=== PATIENT | male | born 1950 | race Caucasian/White ===

== ENCOUNTER 2019-10-14 07:34 | Outpatient (CLI) | payer MEDICARE, SELFPAY ==
--- NOTE | ~2019-10-14 | CT_ITS ---
EXAMINATION: CT chest wo con EXAM DATE: 10/14/2019 08:07 INDICATION: Ascending aortic aneurysm. Skin cancer. TECHNIQUE: Spiral CT of the chest without contrast. Axial, coronal and sagittal images were reviewe d. Coronal maximum intensity pixel images of chest reviewed. The dose-length product (DLP) for this examination was 638.49 mGy-cm. The exposure was tailored according to patient size (auto mA exposur e control), and iterative reconstruction (ASIR) was used as additional dose reduction technique. Comp arison is made to prior examination from 06/13/2017. FINDINGS: The main, central pulmonary arteries are dilated which can indicate elevated pulmonary j luis rial pressure, pulmonary arterial hypertension. The ascending aorta measures 4.6 cm, mildly aneurysma l, not appreciably changed. The lungs are clear. There are no pleural or pericardial effusions. T racheobronchial tree is patent. There is no mediastinal, hilar or axillary lymphadenopathy. There is no pneumothorax. Heart normal in size. There are sternotomy wires, and cardiac/coronary surgi summer changes. Correlate with prior history. Upper abdomen is unremarkable. There is thoracic spondy losis without osteoblastic or osteolytic lesions identified. Patient has diffuse idiopathic skeletal hyperostosis (DISH). Resolution of previously seen acute airspace disease and small pleural and pericardial effusions. IMPRESSION: 1. Stable ascending aortic aneurysm up to 4.6 cm. 2. Pulmonary arterial hypertension. Reviewed, dictated and finalized at location A.
== END 2019-10-14 07:35 | disposition home or self-care (01) ==
PROVIDERS: PCP Family Medicine; Visit Provider Internal Medicine Cardiovascular Disease
DX: I71.2 Thoracic aortic aneurysm, without rupture (principal); I27.21 Secondary pulmonary arterial hypertension
CPT/HCPCS: 71250

== ENCOUNTER → 2020-09-13 01:16 | Outpatient (CLI) | payer MEDICARE, SELFPAY ==
[2020-09-14 14:09] LABS: SARS-CoV-2 RNA PCR Negative
== END ==
PROVIDERS: PCP Family Medicine; Visit Provider Specialist
DX: Z01.812 Encounter for preprocedural laboratory examination (principal); Z20.822 Contact with and (suspected) exposure to COVID-19
CPT/HCPCS: C9803; U0003; U0005

== ENCOUNTER 2020-09-16 01:28 | Day surgery (SDC) | payer MEDICARE, SELFPAY ==
[2020-09-15 15:06] VITALS: BMI 36.0
[2020-09-16] VITALS (10 sets, daily range): BP systolic 102–126; BP diastolic 71–86; PULSE 81–89; RESP 13–20; TEMP 36.1–36.4; O2SAT 97–100; BMI 36.6
[2020-09-16 08:21] LABS: Basophils Absolute Auto 0.1 K/mm3 (0.0-0.1); Eosinophils Absolute Auto 0.2 K/mm3 (0-0.3); Hematocrit 46.4 % (42.0-52.0); Hemoglobin 15.7 g/dL (14.0-18.0); Immature Granulocyte Absolute 0.01 K/mm3 (0.00-0.031); Immature Granulocyte Percent A 0.2 % (0-0.5); Lymphocytes Absolute Auto 1.91 K/mm3 (0.9-3.2); Lymphocytes Percent Auto 30.4 % (18.3-44.2); Mean Corpuscular HGB Conc 33.8 g/dl (32-36); Mean Corpuscular Hemoglobin 29.6 pg (26-34); Mean Corpuscular Volume 87.4 fl (80-100); Mean Platelet Volume 10.5 fl (7.4-10.4); Monocytes Absolute Auto 0.6 K/mm3 (0.1-0.6); Monocytes Percent Auto 9.4 % (2.6-8.5); Neutrophils Absolute Auto 3.5 K/mm3 (1.3-6.7); Platelet Count Result 141 k/mm3 (150-375); Red Blood Count 5.31 M/mm3 (4.6-6.20); Red Cell Distribution Width 12.8 % (11.5-14.5); White Blood Count 6.3 K/mm3 (4.5-10.0)
[2020-09-16 08:32] LABS: Anion Gap 8 mmol/L (8-16); Blood Urea Nitrogen 17 mg/dL (9-20); Calcium 9.3 mg/dL (8.4-10.2); Carbon Dioxide 27 mmol/L (22-30); Chloride 105 mmol/L (98-107); Estimated CRCL calculation 83 ml/min; Estimated Glomerular Filt Rate > 60; Glucose 97 mg/dL (75-110); Potassium 4.8 mmol/L (3.4-5.0); Sodium 140 mmol/L (137-145)
--- NOTE | 2020-09-16 09:21 | ECG_ITS ---
Measurements Intervals [place] Rate: 81 P: MO: 0 QRS: 209 QRSD: 185 T: 25 QT: 428 QTc: 499 Interpretive Statements ATRIAL FIBRILLATION VENTRICULAR PREMATURE COMPLEX RIGHT AXIS DEVIATION RIGHT BUNDLE BRANCH BLOCK INFERIOR INFARCT, AGE INDETERMINATE ABNORMAL ECG Electronically Signed On 09-16-2020 9:41:28 CDT by Jaret Fischer D.O.
--- NOTE | 2020-09-16 09:38 | WPDMODSED ---
Moderate Sedation Note-Pt Data Patient Data Diagnosis: Coronary artery disease with previous bypass grafting, un bypassed circumflex disease, paroxysmal atrial fibrillation with recent recurrence, abnormal nuclear stress test suggesting previous inferior infarction with simone-infarction ischemia Present Complaint: shortness of breath with modest activity Procedure to be performed/Plan: left heart catheterization with [place] coronary angiography, vein graft angiography and internal mammary graft angiography Allergies Allergy/AdvReac Type Severity Reaction Status Date / Time adhesive Allergy Unknown RASH Verified 09/15/20 15:04 Home Medications Medication Instructions Recorded Confirmed Type aspirin 81 mg tablet,delayed 81 mg PO DAILY 06/03/19 09/16/20 History release atorvastatin 40 mg tablet 40 mg PO DAILY 06/03/19 09/16/20 History furosemide 20 mg tablet 20 mg PO QAM tablet 06/03/19 09/16/20 History levocetirizine 5 mg tablet 5 mg PO DAILY 06/03/19 09/16/20 History metoprolol tartrate 25 mg tablet 25 mg PO BID tablet 06/03/19 09/16/20 History multivitamin 1 tablet PO DAILY 06/03/19 09/16/20 History rivaroxaban 20 mg tablet 20 mg PO QPM 06/03/19 09/16/20 History cholecalciferol (vitamin D3) 50 50 mcg PO DAILY 06/20/20 09/16/20 History mcg (2,000 unit) capsule zinc 50 mg tablet 50 mg PO DAILY 06/20/20 09/16/20 History acetaminophen [Tylenol Extra 500 mg PO Q6H PRN 09/16/20 09/16/20 History Strength] amiodarone 100 mg PO DAILY 09/16/20 09/16/20 History ascorbic acid (vitamin C) 1 g PO DAILY 09/16/20 09/16/20 History Current Medications: Active Medications Sodium Chloride (Normal Saline Iv) 500 mls @ 100 mls/hr IV CONT .Q5H ROSHNI Sedation/Anesthesia: No previous sedation/anesthesia problems (including family history). [facility] Past Medical History Medical History (Updated 06/03/19 @ 09:16 by Jose Johnson MD) Elevated PSA Surgical History Surgical History History of repair of rotator cuff bilateral S/P CABG (coronary artery bypass graft) Social History Social History (Updated 03/29/21 @ 09:33 by Izabella Chapin) Smoking status: Never smoker Second hand tobacco smoke exposure: No Alcohol intake: former Substance use: never Substance use type: does not use Gender identity (if verbalized by the patient): Male Mod Sed Physical Exam Physical Exam Pre Procedural Exam: Normal: Throat, Airway, Lungs, Heart Size, Heart Rate and Neuro Exam and Variation: Appearance ( obese white male no apparent distress), Heart Rhythm ( irregularly irregular) and Extremities ( distal pulses 1/4) Hours since solid foods: 12 Hours since liquid intake: 12 Internal Medicine - PN: Obj Da Vital Signs Vital Signs: Vital Signs - 24 hr 09/16/20 08:00 Temperature 36.1 C L Pulse Rate 84 Respiratory Rate 13 Blood Pressure 119/84 Pulse Oximetry 100 Meds/Results Medications: Active Medications Generic Name Dose Route Start Last Admin Trade Name Freq PRN Reason Stop Dose Admin Sodium Chloride 500 mls @ 100 mls/hr 09/16/20 07:30 Normal Saline Iv IV CONT .Q5H ROSHNI Labs CBC & Chem 7: 09/16/20 07:52 09/16/20 07:52 Labs: Laboratory Results - last 24 hr 09/16/20 09/16/20 07:52 07:52 WBC 6.3 RBC 5.31 Hgb 15.7 Hct 46.4 MCV 87.4 MCH 29.6 MCHC 33.8 RDW 12.8 Plt Count 141 L MPV 10.5 H Immature Gran % (Auto) 0.2 Neut % (Auto) 56.0 Lymph % (Auto) 30.4 Lee % (Auto) 9.4 H Eos % (Auto) 3.0 Baso % (Auto) 1.0 Lymph # (Auto) 1.91 Lee # (Auto) 0.6 Eos # (Auto) 0.2 Baso # (Auto) 0.1 Abs Immat Gran (auto) 0.01 Absolute Neuts (auto) 3.5 Absolute Nucleated RBC 0.0 Nucleated RBC % 0.0 Sodium 140 Potassium 4.8 Chloride 105 Carbon Dioxide 27 Anion Gap 8 BUN 17 Creatinine 1.00 Estim Creat Clear Calc 83 Estimated GFR > 60 Glucose 97
--- NOTE | 2020-09-16 09:41 | PM.IMHP ---
H&P: HPI History of Present Illness Date/Time: 09/16/20 09:41 Chief Complaint: shortness of breath with modest activity Narrative: this is a 69-year-old man with a history of coronary artery disease and atrial fibrillation. He was found to have diffuse severe coronary artery disease by angiography in September of 2018 at which time he was referred for revascularization at [facility]. He also has a history of intermittent atrial fibrillation and right bundle branch block. Recently he has noticed much higher heart rate with physical activity he states that he attends cardiac rehab and was told that he is back in atrial fibrillation. He had a nuclear stress test in the office which demonstrated a fixed inferior defect with some simone-infarct ischemia. In this setting angiography has been recommended. The patient in 2019 was found to have heavy calcification in the coronary arteries with flow-limiting disease in the mid LAD, significant disease in a very small ramus intermedius and significant ostial stenosis of the circumflex, right coronary also had complex sequential lesions proximally and in the midportion. Bypass grafting was recommended and performed at [facility]. According to the charts he received an internal mammary graft to the LAD and a vein graft to the right coronary. The circumflex disease appears to be un bypassed and I do not have receipt of the operative note to explain that. There were no significant marginal branches other than the ramus intermedius branch which I mentioned above appeared to be very small angiographically and Possibly not suitable for revascularization. in this setting a follow-up angiogram has been recommended. Review of Systems Constitutional: Constitutional: Reports no additional constitutional complaints Eyes: Eyes: Reports no additional eye complaints ENT: Reports system reviewed and no additional complaints, except as documented Cardiovascular: Cardiovascular: Reports palpitations Respiratory: Respiratory: Reports dyspnea on exertion Gastrointestinal: Gastrointestinal: Reports no additional gastrointestinal complaints Musculoskeletal: Musculoskeletal: Reports no additional musculoskeletal complaints Integumentary/Breasts: Skin/Breast: Reports system reviewed and no additional complaints, except as docu Neurologic: Reports system reviewed and no additional complaints, except as documented [facility] Past Medical History Medical History (Updated 06/03/19 @ 09:16 by Jose Johnson MD) Elevated PSA Surgical History Surgical History History of repair of rotator cuff bilateral S/P CABG (coronary artery bypass graft) Social History Social History (Updated 06/20/20 @ 09:33 by Izabella Chapin) Smoking status: Never smoker Second hand tobacco smoke exposure: No Alcohol intake: former Substance use: never Substance use type: does not use Gender identity (if verbalized by the patient): Male Meds Home Medications and Allergies Home Medications Medication Instructions Recorded Confirmed Type aspirin 81 mg tablet,delayed 81 mg PO DAILY 06/03/19 09/16/20 History release atorvastatin 40 mg tablet 40 mg PO DAILY 06/03/19 09/16/20 History furosemide 20 mg tablet 20 mg PO QAM tablet 06/03/19 09/16/20 History levocetirizine 5 mg tablet 5 mg PO DAILY 06/03/19 09/16/20 History metoprolol tartrate 25 mg tablet 25 mg PO BID tablet 06/03/19 09/16/20 History multivitamin 1 tablet PO DAILY 06/03/19 09/16/20 History rivaroxaban 20 mg tablet 20 mg PO QPM 06/03/19 09/16/20 History cholecalciferol (vitamin D3) 50 50 mcg PO DAILY 06/20/20 09/16/20 History mcg (2,000 unit) capsule zinc 50 mg tablet 50 mg PO DAILY 06/20/20 09/16/20 History acetaminophen [Tylenol Extra 500 mg PO Q6H PRN 09/16/20 09/16/20 History Strength] amiodarone 100 mg PO DAILY 09/16/20 09/16/20 History ascorbic acid (vitamin C) 1 g PO DAILY
--- NOTE | 2020-09-16 10:22 | WPDCARDPROC ---
Cardiac Cath Procedure Note Date of procedure:: 09/16/20 Performing physician:: Jim Rico MD Indication:: Exertional dyspnea coronary artery disease with bypass grafting to the LAD and right coronary in 2019. atrial fibrillation with recent symptomatic recurrence nuclear stress test suggesting previous inferior infarction and simone-infarct ischemia Brief clinical history:: this is a 69-year-old man who is known to have severe 3 vessel coronary disease. He also has a history of paroxysmal atrial fibrillation. He has recently been experiencing exertional shortness of breath which is clinically felt to be related to recurrence of atrial fib. He is not reporting anginal-type chest pain. A nuclear stress test was done in the office which demonstrated a fixed inferior defect with partial reversibility compatible with infarction with simone-infarct ischemia. A follow-up angiogram has been recommended. Previous angiography did did demonstrate a high-grade disease in the mid LAD as well as the proximal and mid RCA. High-grade ostial circumflex disease was also identified and according to the record the circumflex was not grafted. There was also [id number] left main coronary disease. Procedure Procedure performed:: Left ventriculography coronary angiography vein graft angiography internal mammary graft angiography femoral artery angiography and Angio-Seal to right femoral artery Sedation/Medication given:: fentanyl 50 mg Versed 2 mg case start time 9:50 a.m. case end time 10:21 a.m. sedation provided by Socorro Newell RN, trained observer Access site:: right femoral artery Estimated blood loss:: 20 cc Procedure note:: patient was brought to the cardiac catheterization lab in the postabsorptive state where the right femoral triangle was prepared and draped in the usual fashion. Lidocaine 1% was infiltrated for local anesthesia. Following this the femoral artery was punctured and a 5 Macedonian vascular sheath was placed. I then used a 5 Macedonian angled pigtail catheter to measure central hemodynamics and to injected LV g in the TORRES projection. After this a 5 Macedonian FL4 catheter was used to engage and inject the left coronary artery. Following this a 5 Macedonian JR4 catheter was used to engage inject the right coronary artery as well as the RCA vein graft. The left internal mammary graft was injected using a 5 Macedonian IM catheter. Cineangiograms were then reviewed and the case was terminated angiogram was done of the femoral artery through the sheath after which Angio-Seal device was deployed with a good hemostatic result. Procedure was uncomplicated and well tolerated. He was taken to the holding area with no evidence of a groin hematoma. Findings:: Hemodynamics: Central aortic pressure is 112 over 58 left ventricle 112/0 end-diastolic 14 there is no systolic gradient on pullback across the aortic valve. Left ventricle: The LV is normal in size the mid inferior wall is akinetic to slightly dyskinetic. The remainder of the LV contracts adequately. The global ejection fraction of visually estimated to be 50%. The left main coronary artery is large in caliber there is an eccentric proximal/ostial plaque of about 70-80%. There is mild distal left main disease. The left anterior descending is a diffusely diseased vessel with diffuse mild atherosclerosis in the proximal 3rd. The major diagonal branch takes its origin from the segment and has diffuse 60-70% stenosis. After this the midportion of the LAD is functionally 100% occluded with competitive filling seen from the ANANYA graft. The circumflex is a medium caliber vessel which has a 90% stenosis at the ostium. The 1st OM branch takes off is a ramus intermedius is a small diffusely diseased artery angiographically unchanged from 2019. There is a very small 2nd OM branch which is not significantly disease. There is a larger 3rd OM branch which has very sluggish Flow d
--- NOTE | 2020-09-16 14:03 | PC.NURSE ---
IV d/c'd from left forearm, catheter intact. Discharge instructions reviewed with patient and spouse with stated understanding. Instructed to resume Xarelto on SaturdaySeptember [address] Rico's instructions. Pt discharged via wheelchair to personal vehicle with spouse driving.
== END 2020-09-16 13:30 | disposition home or self-care (01) ==
PROVIDERS: PCP Family Medicine; Visit Provider Specialist
PROC: 4A023N7 Measurement of Cardiac Sampling and Pressure, Left Heart, Percutaneous Approach (ICD-10-PCS; CPT 93459; principal; 2020-09-16 09:00)
DX: I25.10 Atherosclerotic heart disease of native coronary artery without angina pectoris (principal); R94.39 Abnormal result of other cardiovascular function study; R06.09 Other forms of dyspnea; I48.0 Paroxysmal atrial fibrillation; Z95.1 Presence of aortocoronary bypass graft; Z79.82 Long term (current) use of aspirin; Z79.01 Long term (current) use of anticoagulants
CPT/HCPCS: 36415; 80048; 85025; 93005; 93459; C1760; C1887; C1894; C9803; G0269; J1644; J2250; J3010; J7040; U0003; U0005

== ENCOUNTER 2020-10-14 01:30 | Day surgery (SDC) | payer MEDICARE, SELFPAY ==
[2020-10-13 15:25] VITALS: BMI 36.2
[2020-10-14] VITALS (10 sets, daily range): BP systolic 110–138; BP diastolic 75–119; PULSE 58–80; RESP 12–18; TEMP 36.1; O2SAT 14–99
--- NOTE | 2020-10-14 | ECG_ITS ---
Measurements Intervals [place] Rate: 60 P: -25 PA: 203 QRS: 196 QRSD: 186 T: -5 QT: 478 QTc: 481 Interpretive Statements SINUS RHYTHM ATRIAL PREMATURE COMPLEX BORDERLINE AV CONDUCTION DELAY RIGHT BUNDLE BRANCH BLOCK CONSIDER INFERIOR INFARCT, AGE INDETERMINATE ABNORMAL ECG Electronically Signed On 10-14-2020 13:08:37 CDT by Jaret Fischer D.O.
--- NOTE | 2020-10-14 08:30 | ECG_ITS ---
Measurements Intervals [place] Rate: 88 P: MO: 0 QRS: 223 QRSD: 181 T: 22 QT: 408 QTc: 495 Interpretive Statements ATRIAL FIBRILLATION RIGHT BUNDLE BRANCH BLOCK CONSIDER INFERIOR INFARCT, AGE INDETERMINATE BASELINE ARTIFACT- I, II, III, AVL, AVF ABNORMAL ECG Electronically Signed On 10-14-2020 13:10:35 CDT by Jaret Fischer D.O.
[2020-10-14 09:48] LABS: Anion Gap 7 mmol/L (8-16); Blood Urea Nitrogen 20 mg/dL (9-20); Calcium 9.4 mg/dL (8.4-10.2); Carbon Dioxide 27 mmol/L (22-30); Chloride 106 mmol/L (98-107); Estimated CRCL calculation 111 ml/min; Estimated Glomerular Filt Rate > 60; Glucose 102 mg/dL (65-110); Potassium 4.6 mmol/L (3.4-5.0); Sodium 140 mmol/L (137-145)
[2020-10-14 09:58] LABS: Magnesium 2.2 mg/dL (1.6-2.3)
--- NOTE | 2020-10-14 12:25 | WPDMODSED ---
Moderate Sedation Note-Pt Data Patient Data Diagnosis: coronary artery disease with previous surgical revascularization recurrent symptomatic atrial fibrillation Present Complaint: exertional dyspnea and fatigue Procedure to be performed/Plan: DC cardioversion Allergies Allergy/AdvReac Type Severity Reaction Status Date / Time adhesive Allergy Unknown RASH Verified 10/13/20 15:29 Home Medications Medication Instructions Recorded Confirmed Type aspirin 81 mg tablet,delayed 81 mg PO DAILY 06/03/19 10/14/20 History release atorvastatin 40 mg tablet 40 mg PO DAILY 06/03/19 10/13/20 History furosemide 20 mg tablet 20 mg PO QAM tablet 06/03/19 10/13/20 History levocetirizine 5 mg tablet 5 mg PO DAILY 06/03/19 10/13/20 History metoprolol tartrate 25 mg tablet 50 mg PO BID tablet 06/03/19 10/14/20 History multivitamin 1 tablet PO DAILY 06/03/19 10/13/20 History rivaroxaban 20 mg tablet 20 mg PO QPM 06/03/19 10/14/20 History cholecalciferol (vitamin D3) 50 50 mcg PO DAILY 06/20/20 10/13/20 History mcg (2,000 unit) capsule zinc 50 mg tablet 50 mg PO DAILY 06/20/20 10/13/20 History acetaminophen [Tylenol Extra 500 mg PO Q6H PRN 09/16/20 10/13/20 History Strength] ascorbic acid (vitamin C) 1 g PO DAILY 09/16/20 10/13/20 History Current Medications: Active Medications Sodium Chloride (Normal Saline Iv) 500 mls @ 30 mls/hr IV CONT .[id number] ROSHNI Sedation/Anesthesia: No previous sedation/anesthesia problems (including family history). [facility] Past Medical History Medical History (Updated 06/03/19 @ 09:16 by Jose Johnson MD) Elevated PSA Surgical History Surgical History History of repair of rotator cuff bilateral S/P CABG (coronary artery bypass graft) Social History Social History (Updated 06/20/20 @ 09:33 by Izabella Chapin) Smoking status: Never smoker Second hand tobacco smoke exposure: No Alcohol intake: former Substance use: never Substance use type: does not use Living arrangements: with family Gender identity (if verbalized by the patient): Male Sexual Orientation (if Verbalized by the Patient): Straight or Heterosexual Spiritual care concerns: No Mod Sed Physical Exam Physical Exam Pre Procedural Exam: Normal: Throat, Airway, Lungs, Heart Size, Neuro Exam and Extremities and Variation: Appearance ( obese white male no distress), Neck ( cannot assess JVD because of obesity), Heart Rate and Heart Rhythm ( irregularly irregular) Hours since solid foods: 12 Hours since liquid intake: 12 Mallampati Classification: class III Internal Medicine - PN: Obj Da Vital Signs Vital Signs: Vital Signs - 24 hr 10/14/20 09:34 Temperature 36.1 C L Pulse Rate 80 Respiratory Rate 15 Blood Pressure 130/89 Pulse Oximetry 97 Meds/Results Medications: Active Medications Generic Name Dose Route Start Last Admin Trade Name Freq PRN Reason Stop Dose Admin Sodium Chloride 500 mls @ 30 mls/hr 10/14/20 08:30 Normal Saline Iv IV CONT .[id number] ROSHNI Labs CBC & Chem 7: 10/14/20 09:11 Labs: Laboratory Results - last 24 hr 10/14/20 09:11 Sodium 140 Potassium 4.6 Chloride 106 Carbon Dioxide 27 Anion Gap 7 L BUN 20 Creatinine 1.00 Estim Creat Clear Calc 111 Estimated GFR > 60 Glucose 102 Calcium 9.4 Magnesium 2.2 ASA Classification/Sedation ASA Classification/Sedation ASA Class: III Emergent: No Risks: Risks, benefits and alternatives explained and patient/family accepted plan for sedation. Patient re-evaluated immediately prior to sedation.
--- NOTE | 2020-10-14 12:46 | WPDCARDPROC ---
Cardiac Cath Procedure Note Date of procedure:: 10/14/20 Performing physician:: Jim Rico MD Indication:: recurrent atrial fibrillation Brief clinical history:: this is a 69-year-old man known to have coronary artery disease with previous bypass grafting. He has had atrial fibrillation as well previously. He now has a symptomatic recurrence of atrial fibrillation he has been anticoagulated as an outpatient and episcopal of sinus rhythm electrically has been recommended by my partner who sees him in the office. Procedure Procedure performed:: DC cardioversion Sedation/Medication given:: intravenous propofol in aliquots total dosage of 100 mg Estimated blood loss:: no blood loss Procedure note:: patient was in the postabsorptive state placed in the supine position with defibrillator patches in the AP position. IV access was established in the left upper extremity. He was then sedated using propofol in aliquots a total dosage of 100 mg was given which provided excellent sedation. At that time he was cardioverted in a synchronized fashion using 200 joules x1 shock which restored normal sinus rhythm. Findings:: As above Conclusion:: successful uncomplicated DC cardioversion of atrial fibrillation restoring sinus rhythm using 200 joules x1 shock. Jim Rico MD [facility]
--- NOTE | 2020-10-14 14:32 | SUR.PHASEII ---
IV d/c'd - catheter intact. Discharge instructions reviewed with patient and spouse with stated understanding. Discharged to home via wheelchair to personal vehicle with driving.
== END 2020-10-14 14:20 | disposition home or self-care (01) ==
PROVIDERS: PCP Family Medicine; Visit Provider Specialist
PROC: 5A2204Z Restoration of Cardiac Rhythm, Single (ICD-10-PCS; principal; 2020-10-14 10:00)
DX: I48.0 Paroxysmal atrial fibrillation (principal); I45.10 Unspecified right bundle-branch block; I77.89 Other specified disorders of arteries and arterioles; I28.9 Disease of pulmonary vessels, unspecified; I37.1 Nonrheumatic pulmonary valve insufficiency; R06.02 Shortness of breath; I25.9 Chronic ischemic heart disease, unspecified; Z95.1 Presence of aortocoronary bypass graft; Z79.82 Long term (current) use of aspirin; Z79.01 Long term (current) use of anticoagulants; I34.0 Nonrheumatic mitral (valve) insufficiency; G47.33 Obstructive sleep apnea (adult) (pediatric); I25.118 Atherosclerotic heart disease of native coronary artery with other forms of angina pectoris; I27.20 Pulmonary hypertension, unspecified; I71.2 Thoracic aortic aneurysm, without rupture
CPT/HCPCS: 36415; 80048; 83735; 92960; J2704; J7040

== ENCOUNTER 2020-11-29 08:05 | Outpatient (CLI) | payer MEDICARE, SELFPAY ==
--- NOTE | ~2020-11-29 | CT_ITS ---
EXAMINATION: CT diagnostic chest wo con EXAM DATE: 11/29/2020 08:30 INDICATION: TAA . Thoracic ascending aortic aneurysm. TECHNIQUE: Spiral CT of the chest without contrast. Axial, coronal and sagittal images of the chest were reviewed. Coronal maximum intensity pixel images of chest reviewed. The dose-length product ( DLP) for this examination was 649.95 mGy-cm. The exposure was tailored according to patient size (au to mA exposure control), and iterative reconstruction (ASIR) was used as additional dose reduction te chnique. Comparison is made to prior examination from 10/14/2019, 06/13/17. FINDINGS: The ascending aorta measures 4.8 cm, was 4.6 on prior examinations, minimal interval incre ase in size. The main, central pulmonary arteries are dilated which can indicate elevated pulmonary a rterial pressure, pulmonary arterial hypertension. There is mild emphysema. There is no focal acute a ir space disease. There are no pleural or pericardial effusions. Tracheobronchial tree is patent . There is no mediastinal, hilar or axillary lymphadenopathy. There is no pneumothorax. Heart n ormal in size. There are sternotomy wires, and cardiac/coronary surgical changes. Correlate with pr ior history. Upper abdomen is unremarkable. There is thoracic spondylosis without osteoblastic or osteolytic lesions identified. IMPRESSION: 1. Minimal interval increase in 4.8 cm ascending aortic aneurysm size. 2. Pulmonary arterial hypertension. 3. Mild emphysema. Reviewed, dictated and finalized at location A.
== END 2020-11-29 08:06 | disposition home or self-care (01) ==
PROVIDERS: PCP Family Medicine; Visit Provider Nurse Practitioner Adult Health
DX: I71.2 Thoracic aortic aneurysm, without rupture (principal); I27.21 Secondary pulmonary arterial hypertension; J43.9 Emphysema, unspecified
CPT/HCPCS: 71250

== ENCOUNTER 2021-12-01 09:11 | Outpatient (CLI) | payer MEDICARE, SELFPAY ==
--- NOTE | ~2021-12-01 | CT_ITS ---
EXAMINATION: CT diagnostic chest wo con DATE: 12/01/2021 11:43 INDICATION: Aortic aneurysm TECHNIQUE: Computed tomography (CT) of the chest was performed without intravenous contrast. The dose -length product (DLP) was 663.02 mGy-cm. Automated exposure control and iterative reconstruction tech Babelgum were employed. COMPARISON: 11/29/2020 FINDINGS: There is a stable fusiform aneurysm of the ascending aorta measuring 4.8 cm at the level of the main pulmonary artery. Although limited by the absence of intravenous contrast, no dissection is identified. There is mild atelectasis. No pleural effusion or pneumothorax. There is enlargement of the main and central pulmonary arteries, consistent with pulmonary hypertension. Changes of cardiac s urgery are noted. There are bridging osteophytes at multiple levels in the spine, consistent with dif fuse idiopathic skeletal hyperostosis (DISH). The esophagus is mildly patulous and contains fluid in its distal two thirds. IMPRESSION: 1. Stable fusiform aneurysm of the ascending aorta. 2. Mildly patulous and fluid-filled distal esophagus of unclear significance. 3. Findings consistent with pulmonary hypertension Reviewed, dictated and finalized at location B.
== END 2021-12-01 09:12 | disposition home or self-care (01) ==
PROVIDERS: PCP Family Medicine; Visit Provider Nurse Practitioner Adult Health
DX: I71.2 Thoracic aortic aneurysm, without rupture (principal)
CPT/HCPCS: 71250

== ENCOUNTER 2022-03-13 00:27 | Day surgery (SDC) | payer MEDICARE, SELFPAY ==
[2022-03-06 13:00] VITALS: BMI 25.7
[2022-03-13 07:23] VITALS: BP 144/76; PULSE 63; RESP 18; TEMP 36.1; O2SAT 94; BMI 36.3
[2022-03-13] MEDS: LACTATED RINGERS 1,000 ML 150 ML IV CONT (07:32)
--- NOTE | 2022-03-13 07:50 | WPDANESEPPF ---
Anes - Initial Pre Proc Eval Procedure: Operation Date: 03/13/22 08:30 Proposed Procedures p Screening Colonoscopy - Jose Dunne MD Date/Time: 03/13/22 07:50 Surgeon: Jose Dunne MD Pre Op Diagnosis: neoplasm screening Patient Data Age: 71 Gender: M Height: 1.85 m Weight: 124.8 kg Last Vital Signs Temp 36.1 C L 03/13/22 07:23 Pulse 63 03/13/22 07:23 Resp 18 03/13/22 07:23 BP 144/76 H 03/13/22 07:23 Pulse Ox 94 03/13/22 07:23 O2 Del Method Room Air 03/13/22 07:23 Allergies Allergy/AdvReac Type Severity Reaction Status Date / Time adhesive Allergy Mild RASH Verified 03/13/22 07:21 Home Medications Medication Instructions Recorded Confirmed Type aspirin 81 mg tablet,delayed 81 mg PO DAILY 06/03/19 03/13/22 History release levocetirizine 5 mg tablet (Xyzal) 5 mg PO QPM 06/03/19 03/13/22 History metoprolol tartrate 25 mg tablet 25 mg PO BID 06/03/19 03/13/22 History multivitamin 1 tablet PO DAILY 06/03/19 03/13/22 History rivaroxaban 20 mg tablet (Xarelto) 20 mg PO QPM 06/03/19 03/13/22 History cholecalciferol (vitamin D3) 50 50 mcg PO DAILY 06/20/20 03/13/22 History mcg (2,000 unit) capsule zinc 50 mg tablet 50 mg PO DAILY 06/20/20 03/13/22 History acetaminophen 500 mg capsule 500 mg PO Q6H PRN Pain 09/16/20 03/13/22 History ascorbic acid (vitamin C) 1,000 mg 1 g PO DAILY 09/16/20 03/13/22 History tablet atorvastatin 40 mg tablet (Lipitor) 40 mg PO DAILY #90 tabs 11/13/21 03/13/22 Rx furosemide 20 mg tablet (Lasix) 20 mg PO QAM #90 tabs 11/13/21 03/13/22 Rx gabapentin 100 mg capsule 100 mg PO BID 03/06/22 03/13/22 History mupirocin 2 % topical ointment 1 applic topical BID PRN Rash 03/06/22 03/13/22 History Patient hx anesthesia problems: none Family hx anesthesia problems: none Results Review: All pre-operative results and documents have been reviewed as part of the pre-operative evaluation. PMFSH Past Medical History Medical History Elevated PSA Surgical History Surgical History History of repair of rotator cuff bilateral S/P CABG (coronary artery bypass graft) Social History Social History Smoking status: Never smoker Second hand tobacco smoke exposure: No Alcohol intake: current Substance use: never Substance use type: does not use Living arrangements: with family Gender identity (if verbalized by the patient): Male Sexual Orientation (if Verbalized by the Patient): Straight or Heterosexual Spiritual care concerns: No Anes - Eval Final PreProcedure Day of Procedure 03/13/22 07:50 Patient weight: obese Heart: regular rate and rhythm Lungs: clear to auscultation Airway: Mallampati scale class II and special considerations poor opening Neurological: alert and oriented Last oral intake: >/= 8 hours ASA classification: III Emergent: no Anesthetic plan: proceed Anesthesia type and monitoring: general GIVS and standard monitoring Results Review: All pre-operative results and documents have been reviewed as part of the pre-operative evaluation. Informed Consent: The patient's anesthetic plan and its attendant risks and benefits were discussed with the patient/family/POA. Questions were solicited and answers provided to the satisfaction of the patient/family/POA.
--- NOTE | 2022-03-13 08:27 | PM.HPGS ---
History of Present Illness History of Present Illness Consent: Risks, benefits, and alternatives have been discussed and questions answered. Patient agrees to proceed with procedure. Chief complaint: neoplasm screening Narrative: Ehsan Ahumada is a 71 year old male Presents for screening colonoscopy. Patient's current weight appetite and bowel movements are normal. Patient denies abdominal pain. He has had no bleeding. Family history noncontributory. Previous colonoscopy 10 years ago was unremarkable. Over the intervening 10 years patient is had atherosclerotic heart disease and underwent a double coronary artery bypass graft. Currently felt to be stable from this. Review of Systems Review of Systems: Review of systems noncontributory. [facility] Past Medical History Medical History Elevated PSA Surgical History Surgical History History of repair of rotator cuff bilateral S/P CABG (coronary artery bypass graft) Social History Social History Smoking status: Never smoker Second hand tobacco smoke exposure: No Alcohol intake: current Substance use: never Substance use type: does not use Living arrangements: with family Gender identity (if verbalized by the patient): Male Sexual Orientation (if Verbalized by the Patient): Straight or Heterosexual Spiritual care concerns: No Meds Home Medications and Allergies Home Medications Medication Instructions Recorded Confirmed Type aspirin 81 mg tablet,delayed 81 mg PO DAILY 06/03/19 03/13/22 History release levocetirizine 5 mg tablet (Xyzal) 5 mg PO QPM 06/03/19 03/13/22 History metoprolol tartrate 25 mg tablet 25 mg PO BID 06/03/19 03/13/22 History multivitamin 1 tablet PO DAILY 06/03/19 03/13/22 History rivaroxaban 20 mg tablet (Xarelto) 20 mg PO QPM 06/03/19 03/13/22 History cholecalciferol (vitamin D3) 50 50 mcg PO DAILY 06/20/20 03/13/22 History mcg (2,000 unit) capsule zinc 50 mg tablet 50 mg PO DAILY 06/20/20 03/13/22 History acetaminophen 500 mg capsule 500 mg PO Q6H PRN Pain 09/16/20 03/13/22 History ascorbic acid (vitamin C) 1,000 mg 1 g PO DAILY 09/16/20 03/13/22 History tablet atorvastatin 40 mg tablet (Lipitor) 40 mg PO DAILY #90 tabs 11/13/21 03/13/22 Rx furosemide 20 mg tablet (Lasix) 20 mg PO QAM #90 tabs 11/13/21 03/13/22 Rx gabapentin 100 mg capsule 100 mg PO BID 03/06/22 03/13/22 History mupirocin 2 % topical ointment 1 applic topical BID PRN Rash 03/06/22 03/13/22 History Allergies Allergy/AdvReac Type Severity Reaction Status Date / Time adhesive Allergy Mild RASH Verified 03/13/22 07:21 Vital Signs Vital Signs - 24 hr 03/13/22 07:23 Temperature 96.9 F L Pulse Rate 63 Respiratory Rate 18 Blood Pressure 144/76 H Pulse Oximetry 94 Oxygen Delivery Room Air Exam Narrative: Physical exam reveals patient to be alert. Vital signs stable. HEENT exam is unremarkable. Patient is anicteric. Lungs are clear to auscultation and percussion. Heart is without murmur or extra sounds. Abdomen bowel sounds are present soft nontender with no organomegaly. Digital external rectal exam is normal. Assessment and Plan Assessment and plan (1) Encounter for screening colonoscopy: Code(s): Z12.11 - Encounter for screening for malignant neoplasm of colon Status: Acute Assessment and Plan: Patient presents today for screening colonoscopy. He appears to be at average risk for colon polyps. Further recommendations may be given after endoscopy.
[2022-03-13 08:59] VITALS: BP 95/56; PULSE 53; RESP 13; O2SAT 100
[2022-03-13 09:09] VITALS: BP 127/70; PULSE 64; RESP 22; O2SAT 100
--- NOTE | 2022-03-13 09:10 | SUR.PHASEII ---
Instructed per Dr. Dunne to resume Xarelto on . Pt. verbalized understanding.
== END 2022-03-13 09:22 | disposition home or self-care (01) ==
PROVIDERS: PCP Family Medicine; Visit Provider Internal Medicine Gastroenterology
PROC: 0DJD8ZZ Inspection of Lower Intestinal Tract, Via Natural or Artificial Opening Endoscopic (ICD-10-PCS; CPT 45378; principal; 2022-03-13 08:30)
DX: Z12.11 Encounter for screening for malignant neoplasm of colon (principal); D12.5 Benign neoplasm of sigmoid colon; K64.8 Other hemorrhoids; K57.30 Diverticulosis of large intestine without perforation or abscess without bleeding; Z79.82 Long term (current) use of aspirin; Z79.01 Long term (current) use of anticoagulants; Z95.1 Presence of aortocoronary bypass graft; E66.9 Obesity, unspecified; Z68.36 Body mass index [BMI] 36.0-36.9, adult
CPT/HCPCS: 45385; 88305; J2704; J7120

== ENCOUNTER 2022-10-12 12:30 | Outpatient (CLI) | payer MEDICARE, SELFPAY ==
--- NOTE | ~2022-10-12 | PE_ITS ---
EXAMINATION: PET_PETPSMAST_PT DATE: 10/12/2022 15:15 INDICATION: Prostate cancer. TECHNIQUE: 9.786 mCi of piflufolastat F-18 was administered intravenously. Low dose computed tomograp hy (CT) images were acquired from the base of the brain to the proximal thighs for attenuation correc tion and anatomic localization. Automated exposure control was employed. Dose-length product (DLP) wa s 1252 mGy-cm. Positron emission tomography (PET) images were acquired in the same distribution. COMPARISON: Chest CT 12/01/2021, 10/14/19 FINDINGS: Head/neck: There are no pathologically enlarged lymph nodes. Chest: The lungs demonstrate mild atelectasis. No pleural effusion. Cardiomegaly is noted. There are coronary artery calcifications. There are changes of coronary artery bypass grafting. The central pul monary arteries are enlarged, consistent with pulmonary arterial hypertension. Calcified left hilar l ymph nodes are consistent with old granulomatous disease. There is a 12 x 18 mm mediastinal lymph nod e with maximum SUV of 3.7, stable in size from 10/14/19. Abdomen/pelvis/proximal thighs: The liver, gallbladder, and pancreas are normal. Calcifications in th e spleen are consistent with old granulomatous disease. The adrenal glands and right kidney are otilia l. There are cysts in left kidney measuring up to 2.3 cm. There is calcified atherosclerosis of the a kathy and many of the other arteries. The prostate is severely enlarged. There is increased activity i n the prostate measuring up to maximum SUV of 8.2 cm on the left. There is a 3 mm stone at right uret erovesicular junction. There is diverticulosis of the colon without evidence of diverticulitis. There are no dilated loops of bowel. The appendix is normal. There are no pathologically enlarged lymph no yanet. There is a 15 x 22 mm left external iliac node with maximum SUV of 3.1. There is no free intrape ritoneal fluid. IMPRESSION: 1. Severely enlarged prostate with maximum SUV of 8.2, consistent with primary malignancy. 2. Mildly enlarged left external iliac lymph node with maximum SUV similar to background activity. Th is finding is probably reactive, but metastatic disease cannot be excluded. 3. Mildly enlarged mediastinal lymph node without change in size from 10/14/2019 with maximum SUV geoff lar to background activity, likely reactive. Reviewed, dictated and finalized at location [facility]. IMPRESSION: 1. Severely enlarged prostate with maximum SUV of 8.2, consistent with primary malignancy. 2. Mildly enlarged left external iliac lymph node with maximum SUV similar to b ackground activity. This finding is probably reactive, but metastatic disease c annot be excluded. 3. Mildly enlarged mediastinal lymph node without change in size from 10/14/2019 with maximum SUV similar to background activity, likely reactive.
== END 2022-10-12 12:31 | disposition home or self-care (01) ==
PROVIDERS: PCP Family Medicine; Visit Provider Urology
DX: C61 Malignant neoplasm of prostate (principal); R59.9 Enlarged lymph nodes, unspecified
CPT/HCPCS: 78815; A9595

== ENCOUNTER 2023-03-06 08:13 | Outpatient (CLI) | payer MEDICARE, SELFPAY ==
--- NOTE | ~2023-03-06 | CT_ITS ---
CT Scan of the Chest without Contrast: Clinical Indication: Aneurysm Technique: Contiguous sections were acquired throughout the chest without intravenous contrast. Dose reduction technique was used on this scan by utilizing automated exposure control and iterative recon struction technique. The dose-length product (DLP) was 589.75 mGy-cm. COMPARISON: 12/01/2021 Findings: There is no evidence of any significant mediastinal, hilar or axillary lymphadenopathy. There are ath erosclerotic ossifications of the aorta and coronary arteries. Evidence of prior presumed CABG. Ascen ding aorta measures 4.8 cm in diameter. There is no evidence of pleural or pericardial effusion. The lungs are clear. No pulmonary nodules or infiltrates are noted. Images through the upper abdomen reveal no abnormalities. Impression: Stable 4.8 cm ascending aortic aneurysm. Evidence of prior CABG. Reviewed, dictated and finalized at [facility]. [employer] Impression: Stable 4.8 cm ascending aortic aneurysm. Evidence of prior CABG.
== END 2023-03-06 08:14 | disposition home or self-care (01) ==
PROVIDERS: PCP Family Medicine; Visit Provider Internal Medicine Cardiovascular Disease
DX: I71.21 Aneurysm of the ascending aorta, without rupture (principal); Z95.1 Presence of aortocoronary bypass graft
CPT/HCPCS: 71250

== ENCOUNTER 2024-01-21 10:11 | Outpatient (CLI) | payer MEDICARE, SELFPAY ==
--- NOTE | ~2024-01-21 | US_ITS ---
EXAMINATION: US venous doppler [facility] DATE: 01/21/2024 11:13 INDICATION: lower limb swelling TECHNIQUE: Grayscale ultrasound images without and with compression and Doppler ultrasound images of the left lower extremity veins were obtained. COMPARISON: None. FINDINGS: The visualized portions of left common femoral vein, profunda (deep) femoral vein, femoral vein, popl iteal vein, peroneal veins, posterior tibial veins, gastrocnemius vein and greater saphenous vein out flow are patent. IMPRESSION: 1. No deep venous thrombosis in the left lower limb. Reviewed, dictated and finalized at location [facility].
[2024-01-21 11:59] LABS: Hematocrit 39.3 % (42.0-52.0); Hemoglobin 13.3 g/dL (14.0-18.0); Immature Platelet Fraction Pct 3.9 % (0.9-11.2); Mean Corpuscular HGB Conc 33.8 g/dl (32-36); Mean Corpuscular Hemoglobin 29.4 pg (26-34); Mean Corpuscular Volume 86.8 fl (80-100); Mean Platelet Volume 10.6 fl (7.4-10.4); Platelet Count Result 136 k/mm3 (150-375); Red Blood Count 4.53 M/mm3 (4.6-6.20); White Blood Count 4.5 K/mm3 (4.5-10.0)
[2024-01-21 12:08] LABS: Alanine Aminotransferase 34 U/L (6-50); Albumin Level 4.4 g/dL (3.5-5.1); Alkaline Phosphatase 91 U/L (38-126); Anion Gap 8 mmol/L (4-12); Aspartate Amino Transferase 32 U/L (17-59); Bilirubin,Total 0.5 mg/dL (0.2-1.3); Blood Urea Nitrogen 21 mg/dL (9-20); Calcium 9.7 mg/dL (8.4-10.2); Carbon Dioxide 27 mmol/L (22-30); Chloride 104 mmol/L (98-107); Estimated Glomerular Filt Rate > 60; Glucose 102 mg/dL (65-110); Potassium 4.3 mmol/L (3.4-5.0); Sodium 139 mmol/L (137-145)
[2024-01-21 12:45] LABS: Vitamin D 25 Hydroxy 58.7 ng/mL
[2024-01-21 13:33] LABS: Folic Acid > 20.0 ng/mL (2.76->20)
== END 2024-01-21 10:12 | disposition home or self-care (01) ==
PROVIDERS: PCP Family Medicine; Visit Provider Family Medicine
DX: M79.89 Other specified soft tissue disorders (principal); I11.0 Hypertensive heart disease with heart failure; I50.9 Heart failure, unspecified; R53.83 Other fatigue; E55.9 Vitamin D deficiency, unspecified; Z79.01 Long term (current) use of anticoagulants
CPT/HCPCS: 36415; 80053; 82306; 82607; 82746; 84443; 85027; 85055; 93971

== ENCOUNTER 2024-03-12 09:58 | Outpatient (CLI) | payer MEDICARE, SELFPAY ==
--- NOTE | ~2024-03-12 | CT_ITS ---
CT Scan of the Chest without Contrast: Clinical Indication: Ascending aortic aneurysm Technique: Contiguous sections were acquired throughout the chest without intravenous contrast. Dose reduction technique was used on this scan by utilizing automated exposure control and iterative recon struction technique. The dose-length product (DLP) was 681.14 mGy-cm. COMPARISON: 03/06/2023 Findings: There is no evidence of any significant mediastinal, hilar or axillary lymphadenopathy. Extensive cor onary artery calcifications are present. Ascending aorta measures 4.8 cm in diameter. Main pulmonary artery measures 4.7 cm in diameter.. There is no evidence of pleural or pericardial effusion. Stable focal presumed chronic atelectasis at the anteromedial right upper lobe. No other pulmonary ab normality seen. Images through the upper abdomen reveal no abnormalities. Impression: Ascending aortic aneurysm measures 4.7 m in diameter. Main pulmonary artery dilated to 4.7 cm in diameter. Correlate for pulmonary artery hypertension. Stable probable chronic atelectasis or scarring at the anteromedial right upper lobe. Reviewed, dictated and finalized at [facility]. [employer]IST Impression: Ascending aortic aneurysm measures 4.7 m in diameter. Main pulmonary artery dilated to 4.7 cm in diameter. Correlate for pulmonary ar sharon hypertension. Stable probable chronic atelectasis or scarring at the anteromedial right upper lobe.
== END 2024-03-12 09:59 | disposition home or self-care (01) ==
PROVIDERS: PCP Family Medicine; Visit Provider Internal Medicine Cardiovascular Disease
DX: I71.21 Aneurysm of the ascending aorta, without rupture (principal); I28.1 Aneurysm of pulmonary artery
CPT/HCPCS: 71250